=== PATIENT | female | born 1995 | race Caucasian/White ===

== ENCOUNTER 2016-10-19 19:38 | Observation (INO) | payer OTHER ==
[~2016-10-19] VITALS: Ht 157.5 cm; Wt 51.3 kg
[2016-10-19] MEDS ORDERED: GABA-282 PO (19:55)
[2016-10-19] MEDS ORDERED: ONDA8TAB8 PO (19:55)
[2016-10-19] MEDS ORDERED: CLON1TAB PO (19:55)
[2016-10-19] MEDS ORDERED: CLONI1TA PO (19:55)
[2016-10-19] MEDS ORDERED: NALOXONE INJ 2 MG/2 ML SYRINGE (J2310) IV STA (20:03)
[2016-10-19] MEDS ORDERED: diphenhydrAMINE INJ 50MG/ML VIAL (J1200) IV STA ×2 (20:03→20:43)
[2016-10-19] MEDS ORDERED: NS 1,000 ML IV ONE (20:15)
[2016-10-19 20:33] LABS: BASO % 0.3 % (0.0-1.0); EOS % 0.6 % (0.0-3.0); LARGE UNSTAINED CELL # 0.2 K/mm3 (0.0-0.4); LARGE UNSTAINED CELL % 2.7 % (0.0-4.0); LYMPH # 1.7 K/mm3 (1.5-6.5); LYMPH % 23.8 % (24.0-44.0); MEAN CORPUSCULAR HEMOGLOBIN 29.3 pg (27.0-33.0); MEAN CORPUSCULAR HGB CONC 32.5 g/dl (32.0-36.5); MEAN CORPUSCULAR VOLUME 90.2 fl (80.0-96.0); MONO # 0.3 K/mm3 (0.0-0.8); MONO % 4.7 % (0.0-5.0); NEUTROPHILS # 4.8 K/mm3 (1.8-7.7); NEUTROPHILS % 67.9 % (36.0-66.0); PLATELET COUNT, AUTOMATED 267 k/mm3 (150-450); WHITE BLOOD COUNT 7.1 K/mm3 (4.0-10.0)
[2016-10-19] MEDS ORDERED: clonazePAM 1 MG TAB PO SCH (21:00)
[2016-10-19] MEDS: cloNIDine 0.1 MG TAB PO SCH (21:00)
[2016-10-19] MEDS: GABAPENTIN 300 MG CAP PO SCH (21:00)
[2016-10-19 21:13] LABS: ALBUMIN 3.2 GM/DL (3.2-5.2); ALBUMIN/GLOBULIN RATIO 0.76 (1.00-1.93); ALKALINE PHOSPHATASE 71 U/L (45-117); ALT/SGPT 111 U/L (12-78); ANION GAP 4 MEQ/L (8-16); AST/SGOT 117 U/L (15-37); BILIRUBIN,DIRECT < 0.1 MG/DL (0.0-0.2); BILIRUBIN,TOTAL 0.5 MG/DL (0.2-1.0); BLOOD UREA NITROGEN 4 MG/DL (7-18); CALCIUM LEVEL 8.8 MG/DL (8.5-10.1); CARBON DIOXIDE LEVEL 27 MEQ/L (21-32); CHLORIDE LEVEL 110 MEQ/L (98-107); CREATININE FOR GFR 0.53 MG/DL (0.55-1.02); GLOMERULAR FILTRATION RATE > 60.0 (>60); GLUCOSE, FASTING 87 MG/DL (70-105); SODIUM LEVEL 141 MEQ/L (136-145); TOTAL PROTEIN 7.4 GM/DL (6.4-8.2)
[2016-10-19 21:16] LABS: POTASSIUM SERUM 4.3 MEQ/L (3.5-5.1)
[2016-10-19 22:42] LABS: CONTROL LINE HCG INT CTR LINE PRESENT
[2016-10-19] MEDS ORDERED: ACETAMINOPHEN TAB 650MG DOSE (2X325MG) PO PRN (22:45)
[2016-10-19] MEDS ORDERED: ONDANSETRON 4MG/2ML VIAL (J2405) IV PRN (22:45)
[2016-10-19] MEDS ORDERED: LOPERAMIDE 2 MG CAP PO PRN (22:45)
[2016-10-19] MEDS: NICOTINE 21MG/24HR 1 EA TRANSDERMAL TD SCH (22:45)
[2016-10-19] MEDS ORDERED: MULTIVITAMIN -ADULT INJECTION 10 ML, THIAMINE INJection 100 MG, FOLIC ACID 1 MG in NS 1... IV ONE (23:00)
[2016-10-19 23:08] LABS: CONTROL LINE INT CTR LINE PRESENT; HIV SCRN NEGATIVE (NEGATIVE); HIV SCRN1 NEGATIVE (NEGATIVE)
--- NOTE | 2016-10-19 23:47 | HPE ---
DATE OF ADMISSION: 10/19/2016 PRIMARY CARE PROVIDER: Dr. Misty Gonzalez, phone number [phone]. SILK BLOCKER: Bea, phone number [phone]. CHIEF COMPLAINT: Shaking, altered mental status. HISTORY OF PRESENT ILLNESS: This is a 20-year-old female patient with underlying medical history of intravenous (IV) drug abuse, heroin with also hepatitis C, was brought in by family for altered mental status, restlessness, agitation. As per family, patient earlier today has received a depot Vivitrol shot at Dr. Gonzalez's office. Subsequently, on the way back from [place] patient became altered mental status with restlessness and agitation, was shaking and subsequently brought to [facility]. At [facility], patient was tachycardic, restless and fairly uncomfortable, not really following commands. Intravenous (IV) fluids were given in the emergency room and subsequently admission for observation has been requested by Dr. Salvador. As per family, patient last used heroin on Saturday, but has likely used a significant quantity, but yesterday patient was away from home for a period of time. Patient's mother is in [place], currently has a production assembler, listed phone number above, taking care of her and there is suspicion that patient has used drugs the day before. Case discussed with Dr. Gonzalez from [place]. Agree that this is typical reaction of opiate withdrawal, likely patient has taken narcotics later than Saturday. Subsequently, has such acute withdrawal reaction and also with evidence of dehydration. Further history not possible from the patient. ALLERGIES: To PENICILLIN. PAST MEDICAL HISTORY: 1. IV drug use. 2. Hepatitis. PAST SURGICAL HISTORY: None. SOCIAL HISTORY: Smokes about one pack of cigarettes per day for the past couple of months. Drinks occasionally, but is not addicted to alcohol. IV drug use with heroin. REVIEW OF SYSTEMS: Unable to obtain. Patient currently is nonverbal. HOME MEDICATIONS: - clonazepam 1 mg by mouth twice a day - clonidine 0.1 mg by mouth twice a day - gabapentin 300 mg by mouth three times a day - Zofran 8 mg by mouth every 8 hours as needed - was also given a shot of Phenergan at the clinic PHYSICAL EXAMINATION: VITAL SIGNS: Temperature 99.3, pulse 104, respirations 16, blood pressure 94/63, pulse oximetry 98% on room air. GENERAL: Patient arousable, restless, shaking movement intermittently, withdrawal from pain, in no acute distress, but not really following commands. HEENT: Normocephalic, atraumatic. Pinpoint pupils. PULMONARY: Bilaterally clear to auscultation. CARDIAC: Tachycardia, regular. ABDOMEN: Soft, nontender. Positive bowel sounds. EXTREMITIES: No edema bilateral lower extremities. NEUROLOGIC: Pinpoint pupils. Cranial nerves II-XII grossly intact. Withdrawal from pain all four extremities. Not really following commands. LABORATORY: WBC 7.1, hemoglobin and hematocrit 11.7/35.9, platelets 267. Chemistry: Sodium 141, potassium 4.3, chloride 110, bicarbonate 27, BUN 4, creatinine 0.53. AST 117, ALT 111. HCG negative. Alcohol level negative. ASSESSMENT AND PLAN: This is a 20-year-old female patient with underlying medical history of hepatitis C, intravenous (IV) drug use, received Vivitrol, admitted for acute withdrawal, encephalopathy and dehydration. 1. Encephalopathy likely secondary to acute withdrawal. Neurologic checks. Supportive care. Banana bag, thiamine, folate, multivitamin. One-to-one sitter. Clonazepam 1 mg by mouth twice a day. Followup urine toxicology. Valium 5 mg IV every 4 hours as needed. Supportive care. Seizure precautions. 2. Dehydration. Patient was tachycardic on presentation. Not tolerating much oral. Will give IV fluids. Heart rate seems to be improving with IV fluids. Continue to monitor. Banana bag given. 3. History of IV drug use, recently received Vivitrol. Case discussed with Dr. Gonzalez. Likely in acute withdrawal. Continue Klonopin with holding parameters. Hold for systolic blood pressure less than 110. Clonazepam 1 mg by mouth twice a day with Valium IV 5 mg every 4 hours as needed. Benadryl has been given. Continue gabapentin, loperamide as needed. Will get urine toxicology for further assessment. 4. Transaminitis likely secondary to hepatitis C. Followup HIV, GC/chlamydia. Supportive care and outpatient followup and treatment. 5. Smoking. Nicotine patch. 6. Deep venous thrombosis (DVT) prophylaxis. Sequential compression device and early ambulation. DISPOSITION: Case discussed with Dr. Gonzalez. Typically, patients with opioid withdrawal tend to recover from acute withdrawal phase in about 1-2 days.
[2016-10-20 01:59] VITALS: BP 109/60; O2SAT 96
[2016-10-20] MEDS: LR 1,000 ML IV SCH ×2 (03:25→08:30)
[2016-10-20 04:00] VITALS: BP 103/64
[2016-10-20 04:56] LABS: MEAN CORPUSCULAR HEMOGLOBIN 30.3 pg (27.0-33.0); MEAN CORPUSCULAR HGB CONC 33.2 g/dl (32.0-36.5); MEAN CORPUSCULAR VOLUME 91.3 fl (80.0-96.0); RED CELL DISTRIBUTION WIDTH 13.3 % (11.5-14.5); WHITE BLOOD COUNT 6.8 K/mm3 (4.0-10.0)
[2016-10-20 05:06] LABS: ANION GAP 6 MEQ/L (8-16); BLOOD UREA NITROGEN 4 MG/DL (7-18); CALCIUM LEVEL 8.2 MG/DL (8.5-10.1); CARBON DIOXIDE LEVEL 25 MEQ/L (21-32); CHLORIDE LEVEL 113 MEQ/L (98-107); CREATININE FOR GFR 0.37 MG/DL (0.55-1.02); GLOMERULAR FILTRATION RATE > 60.0 (>60); GLUCOSE, FASTING 89 MG/DL (70-105); POTASSIUM SERUM 3.7 MEQ/L (3.5-5.1); SODIUM LEVEL 144 MEQ/L (136-145)
[2016-10-20 08:00] VITALS: BP 103/69; O2SAT 96
[2016-10-20 08:25] LABS: METHADONE URINE NEGATIVE (NEGATIVE)
[2016-10-20 08:51] VITALS: BP 103/69
[2016-10-20] MEDS: cloNIDine 0.1 MG TAB PO SCH (08:51)
[2016-10-20] MEDS: GABAPENTIN 300 MG CAP PO SCH (08:58)
[2016-10-20] MEDS ORDERED: clonazePAM 1 MG TAB PO SCH (09:00)
[2016-10-20] MEDS ORDERED: MULTIVITAMINS/MINERALS THERAP 1 TAB PO SCH ×2 (09:00)
[2016-10-20] MEDS ORDERED: FOLIC ACID 1 MG TAB PO SCH ×2 (09:00)
[2016-10-20] MEDS ORDERED: THIAMINE 100 MG TAB PO SCH ×2 (09:00)
[2016-10-20] MEDS: NICOTINE 21MG/24HR 1 EA TRANSDERMAL TD SCH (09:00)
--- NOTE | 2016-10-20 19:00 | ECGEPIP ---
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 LA conduction disturbance. Somewhat low voltages with incomplete RBBB and slow precordial R-wave progression. Pulmonary disease versus body habitus. Electronically Signed On 10-20-2016 18:59:50 EDT by Timmy Mueller
--- NOTE | 2016-10-20 20:34 | DSES ---
DATE OF ADMISSION: 10/19/2016 DATE OF DISCHARGE: 10/20/2016 PRIMARY CARE PROVIDER: Misty Gonzalez MD ([phone]) BLOOD BANK ATTENDANT: Micaela ([phone]) PRIMARY DISCHARGE DIAGNOSIS: 1. Opiate withdrawal. 2. Acute metabolic encephalopathy secondary to opiate withdrawal. 3. Dehydration. 4. History of intravenous drug use, recently received Vivitrol 5. Transaminitis. 6. Chronic hepatitis C. 7. Active smoking. Tobacco sensation has been provided. DISCHARGE MEDICATIONS: - clonazepam 1 mg twice a day - clonidine 0.1 mg twice a day - gabapentin 300 mg twice a day - Zofran 8 mg every 8 hours for nausea HOSPITAL COURSE: This is a 20-year-old female with history of intravenous drug abuse with heroin, hepatitis C, brought in by family for altered mental status, restlessness and agitation. Per the family, the patient received a depot Vitriol shot at Dr. Gonzalez's office and was on her way back to [place] when she was restless and agitated and shaking and was subsequently brought to [facility], where she was found to be tachycardiac and not following commands. Per the family, the patient last used heroin on Saturday, but has likely used a significant quantity. Yesterday, the patient was away from her home for a period of time. The patient's mother is in [place], currently has a line production cook. Per Dr. Gonzalez, the patient was most likely withdrawing from opiates, likely the patient had taken narcotics later than Saturday, is exhibiting acute withdrawal reaction with evidence of dehydration. The patient was admitted for opiate withdrawal and was given 1:1 sitter. Clonazepam 1 mg twice a day, banana bag, thiamine and folate and multivitamin and neuro checks and supportive care. She was given valium every 4 hours as needed with seizure precaution. Intravenous fluids for severe dehydration. Clonidine to be held for her systolic blood pressure less than 110. Benadryl had been given. The patient remained stable during her hospital stay and was discharged to followup with Dr. Gonzalez as previously recommended. Time spent on discharge 30 minutes.
== END 2016-10-20 11:50 | disposition home or self-care (01) ==
LOC: M ED 19:38 → INTOOBSV 22:32 → M ED INP 22:32 → M ICU 10-20 00:46 → M ED INP 10-20 00:54 → M ICU 10-20 01:33
PROVIDERS: ADMIT Hospitalist; ATTEND General Practice
DX: F11.23 Opioid dependence with withdrawal (principal); G92 Toxic encephalopathy; E86.0 Dehydration; R74.0 Nonspecific elevation of levels of transaminase and lactic acid dehydrogenase [LDH]; R00.0 Tachycardia, unspecified; B18.2 Chronic viral hepatitis C; F17.210 Nicotine dependence, cigarettes, uncomplicated; Z88.0 Allergy status to penicillin; Z79.899 Other long term (current) drug therapy
CPT/HCPCS: 36415; 80048; 80076; 80307; 80320; 83735; 84703; 85025; 85027; 87491; 87591; 87806; 93000; 96365; 96366; 96375; 99285; J1200; J2310; J3411